=== PATIENT | female | born 1965 | race African-American/Black ===

== ENCOUNTER → 2021-06-09 | Outpatient (CLI) | payer MEDICARE ==
[2015-10-08 15:15] VITALS: BP 160/74
--- NOTE | 2021-06-09 14:51 | RAD ---
EXAM: CT HEAD WITHOUT CONTRAST. HISTORY: Fall, right tinnitus, vertigo. TECHNIQUE: Computed tomography of the head was performed without intravenous contrast. One or more of the following individualized dose reduction techniques were utilized for this examination: 1. Automated exposure control. 2. Adjustment of the mA and/or kV according to patient size. 3. Use of iterative reconstruction technique. COMPARISON: None. FINDINGS: There is no intracranial hemorrhage. Hypoattenuation within the periventricular white matte r indicates mild chronic microangiopathic change. The ventricles are normal in size and position. The visualized paranasal sinuses appear clear. The orbits are unremarkable. The temporal bones are un remarkable. The calvarium reveals no suspicious lesions. IMPRESSION: 1. No acute intracranial findings. Electronically signed by: Letty Gallardo MD (06/09/2021 2:49 PM) [id number]
== END ==
LOC: CT 14:27
PROVIDERS: ATTEND Family Medicine
DX: R90.82 White matter disease, unspecified (principal); I73.89 Other specified peripheral vascular diseases; H93.11 Tinnitus, right ear; E11.9 Type 2 diabetes mellitus without complications; W19.XXXA Unspecified fall, initial encounter; R42 Dizziness and giddiness
CPT/HCPCS: 70450

== ENCOUNTER 2022-01-19 19:07 | Emergency (ER) | payer MEDICARE ==
[~2022-01-19] VITALS: Ht 144.8 cm; Wt 75.9 kg
--- NOTE | 2022-01-19 19:24 | PHYS DOC ---
Past Medical History Past Medical History: CAD, CHF, COPD, Diabetes-Type II, Hypertension Past Surgical History: Coronary Bypass Surgery Smoking Status: Former Smoker Alcohol Use: None Drug Use: None General Adult EDM: Chief Complaint: General Complaint HPI: HPI: Patient is a 56-year-old female who presents to the emergency department today for right hip pain and right knee pain that started after she tripped and fell at [employer] today. Patient rates pain 7 out of 10. She reports that she did hit the back of her head. But does not believe she had a loss of consciousness. Patient reports that she is not on any blood thinners but takes a daily aspirin. She remembers all the events following the fall. She has been able to bear weight and ambulate. She denies any nausea, vomiting, loss of bowel or bladder, saddle anesthesias. Review of Systems: Review of Systems: HENT: See HPI GI: See HPI : See HPI Musculoskeletal: See HPI Integument: See HPI Neurologic: See HPI Heart Score: C/O Chest Pain: N/A Risk Factors: Risk Factors: DM, Current or recent (<one month) smoker, HTN, HLP, family history of CAD, obesity. Risk Scores: Score 0 - 3: 2.5% MACE over next 6 weeks - Discharge Home Score 4 - 6: 20.3% MACE over next 6 weeks - Admit for Clinical Observation Score 7 - 10: 72.7% MACE over next 6 weeks - Early Invasive Strategies Allergies: Allergies: Allergies Coded Allergies Type Severity Reaction Last Updated Verified Penicillins Allergy Unknown 10/08/15 Yes Physical Exam: PE: Constitutional: Well developed, well nourished, no acute distress, non-toxic appearance. [] HENT: Normocephalic, atraumatic, bilateral external ears normal, oropharynx moist, no oral exudates, nose normal. [] Eyes: PERRL, EOMI, conjunctiva normal, no discharge. [] Neck: Normal range of motion, no tenderness, supple, no stridor. [] Cardiovascular:Heart rate regular rhythm, no murmur [] Lungs & Thorax: Bilateral breath sounds clear to auscultation [] Abdomen: Bowel sounds normal, soft, no tenderness, no masses, no pulsatile masses. [] Skin: Warm, dry, no erythema, no rash. [] Back: No tenderness, normal ROM Extremities: No tenderness, no cyanosis, no clubbing, ROM intact, no edema. [] R. knee: small ecchymosis noted to lateral aspect of right knee, no joint laxity, normal rom, neuro intact, no obvious deformity, no crepitis. R. hip: pain with palpation of right hip, no obvious deformity, no shortening or rotation, rom intact. Neurologic: Alert and oriented X 3, normal motor function, normal sensory function, no focal deficits noted. [] Psychologic: Affect normal, judgement normal, mood normal. [] EKG: EKG: [] Radiology/Procedures: Radiology/Procedures: []REASON: fall hit head PROCEDURE: CT HEAD AND CERVICAL SPINE WO Exam: CT head INDICATION: Fall, hit head TECHNIQUE: Sequential axial images through the head were obtained without the administration of IV contrast. Exposure: One or more of the following in the visualized dose reduction techniques were utilized for this examination: 1. Automated exposure control 2. Adjustment of the MA and/or KV according to patient size 3. Use of iterative of reconstructive technique Comparisons: None FINDINGS: No focal parenchymal lesion or hemorrhage is identified. There is no midline shift or sulcal effacement. No acute vascular territory infarction is identified. Posada-white distinction is preserved. The ventricular system is within normal limits without compression hydrocephalus. The basal cisterns are well maintained. The visualized portions of the paranasal sinuses and mastoid air cells are well- pneumatized. No acute fractures. IMPRESSION: No acute intracranial abnormality. Electronically signed by: Tu Hernandez MD (01/19/2022 8:37 PM) [facility] DICTATED and SIGNED BY: TU HERNANDEZ MD DATE: 01/19/222030 Course & Med Decision Making: Course & Med Decision Making Pertinent Labs and Imaging studies reviewed. (See chart for details) Patient presents to the emergency department following a fall with complaints of right hip and right knee pain. Patient reports that she also hit the back of her head does not believe she had a loss of consciousness. Work-up in the ER consisted of imaging of her hip, knee and head. Imaging of head shows no acute findings. Imaging of right hip/pelvis and right knee showed no acute findings as read by this [employer] and supervising physician. Patient is able to bear weight and ambulate. She has no cauda equina symptoms. Patient advised to take Tylenol and ibuprofen for pain and apply ice. I discussed with patient all findings and diagnostic testing as well as the need to follow-up with PCP for further evaluation and treatment or return to the ER if any new or worsening symptoms. Strict return precautions were also discussed at length. Patient voiced understanding and agreement with the plan. Patient is hemodynamically stable at the time of disposition. Dragon Disclaimer: Dragon Disclaimer: This electronic medical record was generated, in whole or in part, using a voice recognition dictation system. Departure Departure Impression: Primary Impression: Fall Qualified Codes: W19.XXXA - Unspecified fall, initial encounter Disposition: HOME / SELF CARE / HOMELESS Condition: GOOD Patient Instructions: Fall Prevention and Home Safety, Hip Pain Additional Instructions: You were seen in the emergency department following a fall for complaints of head, hip and knee pain. Imaging was performed that showed no acute findings. Take Tylenol and ibuprofen for pain. You can also apply ice. Follow-up with your primary care provider tomorrow regarding your ER visit. Return to the emergency department if you develop worsening of your pain, confusion, intracta ble nausea or vomiting, inability to bear weight or walk, loss of bowel or bladder, decreased sensation in your pelvis or down your legs. MARY LUA APRN Jan 19, 2022 19:24
--- NOTE | 2022-01-19 20:39 | RAD ---
Exam: CT head INDICATION: Fall, hit head TECHNIQUE: Sequential axial images through the head were obtained without the administration of IV co ntrast. Exposure: One or more of the following in the visualized dose reduction techniques were utilized for this examination: 1. Automated exposure control 2. Adjustment of the MA and/or KV according to patient size 3. Use of iterative of reconstructive technique Comparisons: None FINDINGS: No focal parenchymal lesion or hemorrhage is identified. There is no midline shift or sulcal effaceme nt. No acute vascular territory infarction is identified. Posada-white distinction is preserved. The ventricular system is within normal limits without compression hydrocephalus. The basal cisterns are well maintained. The visualized portions of the paranasal sinuses and mastoid air cells are well-pneumatized. No acute fractures. IMPRESSION: No acute intracranial abnormality. Electronically signed by: Napoleon Thurston MD (01/19/2022 8:37 PM) [facility]
--- NOTE | 2022-01-19 21:23 | RAD ---
Exam Date: 01/19/2022 7:37 PM XR KNEE 3 VIEWS_RT Indication: Reason: fall / Spl. Instructions: / History: . FINDINGS/ IMPRESSION: Small osteophytes are noted. No acute fracture or dislocation. Alignment and joint spaces are maintained. Vascular calcification s are noted. The soft tissues are otherwise within normal limits. Electronically signed by: Michel Benedict MD (01/19/2022 9:21 PM) [facility]
--- NOTE | 2022-01-19 21:28 | RAD ---
Exam Date: 01/19/2022 7:37 PM XR RIGHT HIP (WITH OR WITHOUT PELVIS) 2 VIEWS Indication: Reason: fall / Spl. Instructions: / History: . FINDINGS/ IMPRESSION: No acute fracture or dislocation. Mild degenerative changes are noted. Alignment is maintained. Th e soft tissues are within normal limits. Electronically signed by: Michel Benedict MD (01/19/2022 9:25 PM) [facility]
[2022-01-19 21:45] VITALS: BP 132/61
== END 2022-01-19 21:50 | disposition home or self-care (01) ==
LOC: ER 19:07
DX: M25.561 Pain in right knee (principal); M25.551 Pain in right hip; G89.11 Acute pain due to trauma; J44.9 Chronic obstructive pulmonary disease, unspecified; I11.0 Hypertensive heart disease with heart failure; I50.9 Heart failure, unspecified; I25.10 Atherosclerotic heart disease of native coronary artery without angina pectoris; Z87.891 Personal history of nicotine dependence; Z95.1 Presence of aortocoronary bypass graft; Z88.0 Allergy status to penicillin; W01.0XXA Fall on same level from slipping, tripping and stumbling without subsequent striking against object, initial encounter; Y93.89 Activity, other specified; Y92.89 Other specified places as the place of occurrence of the external cause; Y99.8 Other external cause status
CPT/HCPCS: 70450; 72125; 73502; 73562; 99284-25